=== PATIENT | male | born 1995 | race Caucasian/White ===

== ENCOUNTER 2024-10-02 21:57 | Emergency (ER) | payer OTHER, SELFPAY ==
[2024-10-02 22:00] VITALS: BP 163/98
[2024-10-02 22:38] VITALS: BMI 24.6
[2024-10-02] MEDS: ADACEL 0.5 ML IM (23:15)
--- NOTE | 2024-10-02 23:42 | ED.GENMED ---
History of Present Illness
General
Chief Complaint: Skin Surface Trauma
Source: patient
Exam Limitations: none
Time Seen by Provider: 10/02/24 23:00
History of Present Illness
History of Present Illness:
28yoM with no significant past medical history presenting for evaluation of a right knee laceration that was sustained about an hour ago. Patient was playing soccer when he was kicked with a cleat causing a laceration. Bleeding controlled on
arrival. Unknown last Tdap.
Phy Exam
General Physical Exam
General Presentation: well appearing and no apparent distress
General Skin: warm and dry
General Habitus: normal
General Mental: alert
ENT Exam
ENT Exam: normocephalic
Pulmonary Exam
Pulmonary Exam: no respiratory distress
Neurological Exam
Neurological Exam: alert
Apryl Coma Scale
Eye Opening: Spontaneous
Verbal Response: Oriented
Motor Response: Obeys Commands
GCS Total Score: 15
Skin Exam
Skin Exam: normal color, warm/dry and other (4cm gaping laceration above medial aspect of R knee. No bony tenderness or evidence of joint space disruption. )
Psychiatric Exam
Psychiatric Exam: normal mood/affect
Course
Orders/Labs/Results
Orders:
Orders
10/02/24 23:08
Tetanus/Diphth/Acelpertussis [Adacel] 0.5 ml IM .ONCE ONE
Vital Signs
Initial and Last Documented VS:
Initial Vital Signs
Temp Pulse Resp BP Pulse Ox
98.3 F 121 16 163/98 97
10/02/24 22:00 10/02/24 22:00 10/02/24 22:00 10/02/24 22:00 10/02/24 22:00
Last Documented Vital Signs
Temp Pulse Resp BP Pulse Ox
98.3 F 121 16 163/98 97
10/02/24 22:00 10/02/24 22:00 10/02/24 22:00 10/02/24 22:00 10/02/24 23:44
Procedures
Laceration Closure
Right Knee:
Status of Wound: clean
Size of Wound in cm: 4
Description of Wound Edges: sharp
Preparation: cleaned with saline
Anesthesia: 1% Lidocaine with epi
Wound exploration: explored to base- no FB
Type of Closure: single layer closure
Skin Closure Material: 3-0 nylon
Number of sutures: 4
MDM/Problems Addressed
Differential Diagnosis Includes:
28yoM here for R knee laceration. 4cm gaping laceration on exam without evidence of joint space disruption. Wound irrigated and repaired as above. Tdap updated. Home wound care discussed. Patient instructed to have sutures removed in 14 days and
return to the ER with any signs of infection.
*Pulse Oximetry
SaO2: 97
Oxygen Mode of Delivery: Room air
Patient hypoxic: no (97%)
*Critical Care Note
Total Time (30-74mins, 75-104mins- exclusive of procedures): Not Applicable
ED Attending Note
-
Portions of this chart may have been created with voice recognition software.� Occasional wrong word or��sound alike� substitutions may have occurred due to the inherent limitations of voice recognition software.
Discharge Plan
Departure
Patient Disposition: Home (Routine Discharge)
Date of Disposition: 10/02/24
Time of Disposition: 23:44
Patient with high blood pressure during this ER visit?: Yes
Discharge Problem:
Laceration of right knee
Instructions: Laceration Repair With Stitches (DC)
Prescriptions:
No Action
No Current Medications
0
Referrals:
UNKNOWN - PT DOES,NOT KNOW [Family Provider]
Activity Restrictions/Additional Instructions:
Do not get wet for 24 hours. Keep wound clean and dry.
Sutures need to be removed in 14 days. Return to the ER with any signs of infection.
Interventions
Interventions:
*Risk Screen - Suicide Last Done: 10/02/24 22:00
*General Assessment Last Done: 10/02/24 22:00
*Neglect/Abuse Screening Last Done: 10/02/24 22:00
*ED- Fall Risk Assessment Last Done: 10/02/24 22:38
*ED COVID-19 Vaccine History Last Done: 10/02/24 22:38
*Nursing Disposition Last Done: 10/02/24 23:57
ED-Skin Assessment Last Done: 10/02/24 22:38
Discharge Date and Time
Discharge Date/Time: 10/02/24 23:57
Print Language: [place]
== END 2024-10-02 23:57 | disposition home or self-care (01) ==
LOC: EMR 21:57
PROVIDERS: EMERGENCY PHYSICIAN Emergency Medicine
DX: S81.011A Laceration without foreign body, right knee, initial encounter (principal); Y93.66 Activity, soccer
CPT/HCPCS: 99282; 12002; 90471; 90715

== ENCOUNTER 2024-10-27 18:18 | Emergency (ER) | payer OTHER, SELFPAY ==
[2024-10-27 18:24] VITALS: BP 139/85
[2024-10-27 18:46] LABS: Hematocrit 46.4 % (39.0-52.0); Hemoglobin 16.4 g/dL (13.0-18.0); Mean Corp Hgb Conc. 35.3 g/dL (33.0-37.0); Mean Corpuscular Volume 87.7 fL (80.0-94.0); Nucleated Red Blood Cells % 0 % (-); Platelet Count 274 10^3/uL (130-400); Red Cell Dist. Width 11.9 % (11.5-14.5)
[2024-10-27 18:56] LABS: ALT (SGPT) 22 U/L (0-50); AST (SGOT) 23 U/L (17-59); Albumin 5.5 g/dl (3.5-5.0); Alkaline Phosphatase 30 U/L (38-126); Blood Urea Nitrogen 16 mg/dl (9-20); Calcium 9.9 mg/dl (8.4-10.2); Carbon Dioxide 29 mmol/L (22-30); Chloride 104 mmol/L (98-107); Glucose 119 mg/dl (70-99); Potassium 4.1 mmol/L (3.5-5.1); Sodium 139 mmol/L (135-145); Total Protein 9.1 g/dl (6.3-8.2); eGFR > 60.00
--- NOTE | 2024-10-27 21:11 | ED.GENMED ---
History of Present Illness
General
Chief Complaint: Abdominal Pain
Source: patient and significant other
Exam Limitations: none
Time Seen by Provider: 10/27/24 20:30
Nursing documentation reviewed up to this point in time: agreed with
History of Present Illness
History of Present Illness:
28-year-old male limited past medical history social drinker non-smoker crampy right lower abdominal pain with dizziness feels like he seasick eating and drinking okay though believes he could be dehydrated due to the heat recently, moving his
bowels normally, he is hungry, no prior abdominal surgeries, no sick contacts,
Past History
Past History
ED Past Surgical History: Orthopedic (Surgery to his right lower extremity); Negative Appendectomy, Bowel resection or Cholecystectomy
Social History
Tobacco: Non-smoker
Alcohol: Occasional
Drug: None
Living: with family
Employment: Employed
Review of Systems
Review of Systems
All Other Systems: Not applicable
Constitutional: Reports fatigue; Denies fever
EENT: Reports no symptoms
Respiratory: Denies cough or trouble breathing
ABD/GI: Reports abdominal pain; Denies diarrhea, constipated or black stools
: Reports no symptoms
Neurological: Reports dizzy; Denies headache
Phy Exam
Physical Exam
Physical Exam:
Physical Exam
General: no apparent distress, not acutely ill
Neck: Dry lips
Heart: s1/s2 regular rate and rhythm, no murmur. equal radial pulses.
Lungs: no acute respiratory distress. clear bilaterally
Abdomen: Soft minimal right greater than left lower tenderness
Neuro: alert and oriented. no focal neurological deficits
Skin: no rash
Psychiatric: well kept. interactive and cooperative
Extremities: no edema.
Course
Orders/Labs/Results
Orders:
Orders
10/27/24 18:34
C-Reactive Protein Urgent
Comment: ADD ON
CMP [Comprehensive Metabolic Panel] Urgent
Complete Blood Count/With Diff Urgent
Erythrocyte Sed Rate Urgent
Comment: ADD ON
10/27/24 21:05
Add On- LAB Urgent
Tests Added?: esr/crp
10/27/24 21:06
CT Abd/Pel (IV only)-DH only Urgent
Comment:
Reason For Exam: rlq pain
IV Insert/Care/Rem.- Treatment PRN
0.9% Sodium Chloride 1000 ml [Nss] 1,000 ml IV BOLUS
Ketorolac [Toradol] 30 mg IV NOW STA
Ondansetron Injectable [Zofran] 4 mg IV NOW STA
Abnormal Lab Results
10/27/24
18:34
MPV 11.2 H fL
(7.4-10.4)
Glucose 119 H mg/dl
(70-99)
Alkaline Phosphatase 30 L U/L
(38-126)
Total Protein 9.1 H g/dl
(6.3-8.2)
Albumin 5.5 H g/dl
(3.5-5.0)
10/27/24 18:34
10/27/24 18:34
Vital Signs
Initial and Last Documented VS:
Initial Vital Signs
Temp Pulse Resp BP Pulse Ox
98.2 F 59 16 139/85 100
10/27/24 18:24 10/27/24 18:24 10/27/24 18:24 10/27/24 18:24 10/27/24 18:24
Last Documented Vital Signs
Temp Pulse Resp BP Pulse Ox
98.2 F 54 16 131/81 100
10/27/24 18:24 10/27/24 21:28 10/27/24 21:28 10/27/24 21:28 10/27/24 21:28
MDM/Problems Addressed
Differential Diagnosis Includes:
Viral syndrome dehydration urinary tract pathology appendicitis epiploic appendagitis, inflammatory bowel disease patient has no complaints
MDM/Problems Addressed:
Abdominal pain dizziness
*Radiology
Radiology exam reviewed: radiology read reviewed
*Pulse Oximetry
SaO2: 100
Oxygen Mode of Delivery: Room air
Patient hypoxic: no
*Critical Care Note
Total Time (30-74mins, 75-104mins- exclusive of procedures): Not Applicable
Update Note
Update Note:
Update 1115 patient appears well labs noted CT noted CT report noted reviewed recommendations with the patient for outpatient follow-up
ED Attending Note
-
Portions of this chart may have been created with voice recognition software.� Occasional wrong word or��sound alike� substitutions may have occurred due to the inherent limitations of voice recognition software.
Discharge Plan
Departure
Patient Disposition: Home (Routine Discharge)
Date of Disposition: 10/27/24
Time of Disposition: 23:11
Patient with high blood pressure during this ER visit?: No
Condition: Good
Covid-19: Not Applicable
Discharge Problem:
Abdominal pain
Instructions: Abdominal Pain
Prescriptions:
New
ondansetron 4 mg tablet,disintegrating
4 mg PO Q8H PRN (Reason: nausea and vomiting) Qty: 10 0RF
dicyclomine 20 mg tablet
20 mg PO QID PRN (Reason: abdominal cramps) Qty: 10 0RF
Referrals:
UNKNOWN - PT DOES,NOT KNOW [Family Provider]
Activity Restrictions/Additional Instructions:
Restroom plenty of fluids,
The radiologist has recommended you get a MRI scan in the future to evaluate the small lesion seen on your liver
Talk to your family doctor about this
Interventions
Interventions:
*Risk Screen - Suicide Last Done: 10/27/24 18:24
*General Assessment Last Done: 10/27/24 18:24
*Neglect/Abuse Screening Last Done: 10/27/24 21:27
*ED- Fall Risk Assessment Last Done: 10/27/24 21:27
*ED COVID-19 Vaccine History Last Done: 10/27/24 21:27
JJ-Pslkvl-Vowpnkfxln Assessment Last Done: 10/27/24 22:08
Discharge Date and Time
Print Language: IS[place]I
[2024-10-27] MEDS: NSS 1000 IV (21:26)
[2024-10-27] MEDS: ZOFRAN 4 MG IV (21:26)
[2024-10-27] MEDS: TORADOL 30 MG IV (21:26)
[2024-10-27 21:27] VITALS: BMI 23.8
[2024-10-27 21:28] VITALS: BP 131/81
[2024-10-27 21:30] LABS: C-Reactive Protein < 5.00 mg/L (0.0-10.00)
== END 2024-10-27 23:29 | disposition home or self-care (01) ==
LOC: EMR 18:18
PROVIDERS: Emergency Medicine; EMERGENCY PHYSICIAN Emergency Medicine
DX: R10.31 Right lower quadrant pain (principal); R42 Dizziness and giddiness
CPT/HCPCS: 96374; 96375; 99284; 96361; 74177; 80053; 85025; 85652; 86140; Q9967